=== PATIENT | female | born 1930 | race Caucasian/White ===

== ENCOUNTER 2017-02-23 18:45 | Inpatient (IN) | payer MEDICARE, BC ==
[2017-02-23] MEDS ORDERED: SODIUM CHLORIDE 0.9% 500 ML IV STA (19:43)
--- NOTE | 2017-02-23 20:07 | ED ---
General Adult HPI <Wayne Carrington - Last Filed: 02/23/17 22:22> - General Source: family, RN notes reviewed Mode of arrival: wheelchair Limitations: physical limitation <Danae Alanis - Last Filed: 02/23/17 23:02> - General Chief complaint: Extremity Injury, Upper Stated complaint: hip pain Time Seen by Provider: 02/23/17 19:35 - History of Present Illness Initial comments: 87-year-old female presents emergency Department chief complaint of fall. The patient was found at home on the ground. Patient was last talked to around noon and the family found her around 5. Patient does not know how she fell. Patient noticed the bruising to the left side of her face. He noticed that she is favoring her right shoulder as well as she is unable to bear weight onto her right leg. The patient at this time denies any pain except for when she tries to move her right shoulder or her right hip. She denies any headache. They states she does suffer from dementia. They state that she is confused today her confusion. He states they do not know if this is from the injury or new. The patient is a poor historian and does not even know how she fell when she fell. Patient denies any chest pain or shortness of breath. (Danae Alanis) - Related Data Home Medications Medication Instructions Recorded Confirmed Aspirin 81 mg PO DAILY 01/08/14 02/23/17 Valsartan/Hydrochlorothiazide 160 mg PO HS 01/08/14 02/23/17 [Diovan Hct 160-12.5 mg Tab] ALPRAZolam [Xanax] 0.25 mg PO BID PRN 01/30/14 02/23/17 Acetaminophen Tab [Tylenol] 500 mg PO BID 01/30/14 02/23/17 Furosemide [Lasix] 40 mg PO BID 08/18/14 02/23/17 traMADol HCl [Ultram] 50 mg PO Q4H PRN 11/11/14 02/23/17 Sertraline [Zoloft] 50 mg PO DAILY 01/05/15 02/23/17 Memantine [Namenda] 10 mg PO DAILY 02/23/17 02/23/17 Metoprolol Tartrate [Lopressor] 12.5 mg PO BID 02/23/17 02/23/17 Multivitamins, Thera [Multivitamin 1 tab PO DAILY 02/23/17 02/23/17 (formulary)] Allergies Allergy/AdvReac Type Severity Reaction Status Date / Time celecoxib [From Celebrex] AdvReac Unknown Verified 02/23/17 19:54 methylprednisolone acetate AdvReac Unknown Verified 02/23/17 19:54 [From Depo-Medrol] Review of Systems ROS Other: All systems not noted in ROS Statement are negative. <Wayne Carrington - Last Filed: 02/23/17 22:22> ROS Other: All systems not noted in ROS Statement are negative. <Danae Alanis - Last Filed: 02/23/17 23:02> ROS Statement: Those systems with pertinent positive or pertinent negative responses have been documented in the HPI. Past Medical History Past Medical History: Dementia, Diabetes Mellitus, Hyperlipidemia, Hypertension Additional Past Medical History / Comment(s): PHLEBITIS/BLOOD CLOTS/POOR CIRCULATION/LEAKAGE OF URINE/URIN FREQ/NARROWING OF ESOPHAGUS/OSTEOPOROSIS hx. bradycardia History of Any Multi-Drug Resistant Organisms: None Reported Past Surgical History: Back Surgery, Cholecystectomy, Hysterectomy Additional Past Surgical History / Comment(s): CATARACTS REMOVED R & L EYES/EGD/ R&L KNEE REPLACEMENT/KYPHOPLASTY Past Anesthesia/Blood Transfusion Reactions: No Reported Reaction Past Psychological History: No Psychological Hx Reported Smoking Status: Never smoker Past Alcohol Use History: None Reported Past Drug Use History: None Reported <Danae Alanis - Last Filed: 02/23/17 23:02> General Exam Limitations: physical limitation General appearance: alert, in no apparent distress Head exam: Present: atraumatic, normocephalic, normal inspection, other ( Minimal ecchymosis noted to the left upper forehead) Eye exam: Present: normal appearance, PERRL, EOMI. Absent: scleral icterus, conjunctival injection, periorbital swelling ENT exam: Present: normal exam, mucous membranes moist Neck exam: Present: normal inspection. Absent: tenderness, meningismus, lymphadenopathy Respiratory exam: Present: normal lung sounds bilaterally. Absent: respiratory distress, wheezes, rales, rhonchi, stridor Cardiovascular Exam: Present: regular rate, normal rhythm, normal heart sounds. Absent: systolic murmur, diastolic murmur, rubs, gallop, clicks GI/Abdominal exam: Present: soft, normal bowel sounds. Absent: distended, tenderness, guarding, rebound, rigid Right Shoulder Exam: Present: normal inspection, full ROM, tenderness (On The right shoulder). Absent: swelling, abrasion Upper Arm exam: Present: normal inspection, full ROM. Absent: tenderness, swelling Elbow exam: Present: normal inspection, full ROM. Absent: tenderness, swelling Forearm Wrist exam: Present: normal inspection, full ROM. Absent: tenderness, swelling Hand Wrist exam: Present: normal inspection, full ROM. Absent: tenderness, swelling Vascular: Present: normal capillary refill. Absent: vascular compromise Right Hip exam: Present: normal inspection, tenderness (Tenderness over the lateral aspect). Absent: full ROM (Tenderness on range of motion), swelling, abrasion Upper Leg exam: Present: normal inspection, full ROM. Absent: tenderness, swelling Knee exam: Present: normal inspection, full ROM. Absent: tenderness, swelling Lower Leg exam: Present: normal inspection, full ROM. Absent: tenderness, swelling Ankle exam: Present: normal inspection, full ROM. Absent: tenderness, swelling Back exam: Present: normal inspection, full ROM, tenderness (through the mid lumbar spine) Neurological exam: Present: alert, oriented X3 Psychiatric exam: Present: normal affect, normal mood Skin exam: Present: warm, dry, intact, normal color. Absent: rash <Danae Alanis - Last Filed: 02/23/17 23:02> Medical Decision Making - Lab Data Result diagrams: 02/23/17 20:50 02/23/17 20:50 <Wayne Carrington - Last Filed: 02/23/17 22:22> - Lab Data Result diagrams: 02/23/17 20:50 02/23/17 20:50 - Radiology Data Radiology results: report reviewed, image reviewed <Danae Alanis - Last Filed: 02/23/17 23:02> - Medical Decision Making Medical decision-making. The patient's x-ray shows evidence of a high root fracture of the right superior and inferior ramus. The case discussed with on- call orthopedic surgeon Dr. Saba. He will consult on the case. He recommends a CAT scan of the pelvis to include both hips.. The patient was found lying on the floor by family. She'll be admitted to her family doctor for evaluation. Dr. Carrington Discussed case with Dr. Nguyễn. Patient be admitted his service. Request for social service consultation for posthospitalization placement. Dr. Carrington (Wayne Carrington) 87-year-old female presents to the emergency department with a chief complaint of fall. Patient is complaining of right shoulder and right hip pain. There is concern for head trauma. At this time patient's imaging is reviewed that does show a pelvic fracture. Dr. Saba was discussed with the case and he would like a CT pelvis that he will follow-up with Admission. CT Head and Cervical Spine There Is Concern for a Chronic Fracture the Patient Does Have Chronic History of Neck Pain. She Will Be Placed in a C-Collar Will Have Orthopedics Follow up with This As Well. At This Time the Patient Also Does Have Some Dehydration We Will Hydrate the Patient. There Is Some Hyperglycemia We Will Continue the Patient on D Humalog Sliding Scale. This Time Patient and Family Claim of Questions Have Been Answered. They Will Be Admitted. (Danae Alanis) - Lab Data Lab Results 02/23/17 02/23/17 02/23/17 Range/Units 20:50 20:50 20:50 WBC 10.7 H (3.8-10.6) k/uL RBC 3.22 L (3.80-5.40) m/uL Hgb 10.5 L (11.4-16.0) gm/dL Hct 31.8 L (34.0-46.0) % MCV 98.8 (80.0-100.0) fL MCH 32.8 (25.0-35.0) pg MCHC 33.2 (31.0-37.0) g/dL RDW 13.5 (11.5-15.5) % Plt Count 236 (150-450) k/uL Neutrophils % 87 % Lymphocytes % 5 % Monocytes % 5 % Eosinophils % 0 % Basophils % 0 % Neutrophils # 9.2 H (1.3-7.7) k/uL Lymphocytes # 0.6 L (1.0-4.8) k/uL Monocytes # 0.5 (0-1.0) k/uL Eosinophils # 0.0 (0-0.7) k/uL Basophils # 0.0 (0-0.2) k/uL PT 10.0 (9.0-12.0) sec INR 1.0 (<1.1) APTT 21.1 L (22.0-30.0) sec Sodium 139 (137-145) mmol/L Potassium 4.4 (3.5-5.1) mmol/L Chloride 103 (98-107) mmol/L Carbon Dioxide 24 (22-30) mmol/L Anion Gap 12 mmol/L BUN 25 H (7-17) mg/dL Creatinine 1.70 H (0.52-1.04) mg/dL Est GFR (MDRD) Af Amer 34 (>60 ml/min/1.73 sqM) Est GFR (MDRD) Non-Af 28 (>60 ml/min/1.73 sqM) Glucose 435 H (74-99) mg/dL Calcium 9.8 (8.4-10.2) mg/dL Total Bilirubin 0.5 (0.2-1.3) mg/dL AST 29 (14-36) U/L ALT 32 (9-52) U/L Alkaline Phosphatase 105 (38-126) U/L Creatine Kinase 122 (30-135) U/L Total Protein 6.1 L (6.3-8.2) g/dL Albumin 3.5 (3.5-5.0) g/dL Disposition <Wayne Carrington - Last Filed: 02/23/17 22:22> Time of Disposition: 23:02 Decision Date: 02/23/17 Decision Time: 23:02 <Danae Alanis - Last Filed: 02/23/17 23:02> Clinical Impression: Dehydration, Pelvic fracture, Fall, Dementia, Hyperglycemia due to type 2 diabetes mellitus, Chronic neck pain, Contusion of left ankle, Right shoulder strain Disposition: ADMITTED IP TO THIS [facility] Condition: Stable Referrals: Peter Nguyễn DO [Primary Care Provider] - 1-2 days
[2017-02-23] MEDS: MORPHINE SULFATE 2 MG/ML SYRINGE IVP STA ×2 (20:53→23:01)
[2017-02-23 21:05] LABS: Basophils % (A) 0 %; CH 30.8; CHCM 31.4; Eosinophils % (A) 0 %; HCT 31.8 % (34.0-46.0); HDW 2.35; HGB 10.5 gm/dL (11.4-16.0); Luc # (Auto) 0.32; Luc % (Auto) 3; Lymphocytes # (A) 0.6 k/uL (1.0-4.8); Lymphocytes % (A) 5 %; MCH 32.8 pg (25.0-35.0); MCHC 33.2 g/dL (31.0-37.0); MCV 98.8 fL (80.0-100.0); Mean Platelet Volume 7.9; Monocytes # (A) 0.5 k/uL (0-1.0); Monocytes % (A) 5 %; Neutrophils # (A) 9.2 k/uL (1.3-7.7); Neutrophils % (A) 87 %; RBC 3.22 m/uL (3.80-5.40); RDW 13.5 % (11.5-15.5); WBC 10.7 k/uL (3.8-10.6)
[2017-02-23 21:23] LABS: Calcium 9.8 mg/dL (8.4-10.2); Potassium 4.4 mmol/L (3.5-5.1); Total Bilirubin 0.5 mg/dL (0.2-1.3); Total Protein 6.1 g/dL (6.3-8.2)
[2017-02-23 21:40] LABS: Partial Thromboplastin Time 21.1 sec (22.0-30.0)
--- NOTE | 2017-02-23 21:46 | XR ---
EXAMINATION TYPE: XR ankle complete LT DATE OF EXAM: 02/23/2017 COMPARISON: NONE HISTORY: Pain TECHNIQUE: 3 views FINDINGS: There is soft tissue swelling over the lateral malleolus. Bones are osteopenic. There is a plantar and Achilles calcaneal spur. I see no fracture. IMPRESSION: Soft tissue swelling. No fracture. There is significant narrowing at the subtalar joint.
--- NOTE | 2017-02-23 21:47 | XR ---
EXAMINATION TYPE: XR shoulder complete RT DATE OF EXAM: 02/23/2017 COMPARISON: NONE HISTORY: Pain TECHNIQUE: 5 views FINDINGS: There is severe narrowing of the subacromial joint space. I see no fracture. There is spurr ing at the AC joint. IMPRESSION: No fracture. Severe subacromial joint space narrowing consistent with chronic rotator cuf f tear. There is obliteration of subacromial joint space.
--- NOTE | 2017-02-23 21:50 | XR ---
EXAMINATION TYPE: XR Hip RT and AP Pelvis DATE OF EXAM: 02/23/2017 COMPARISON: None HISTORY: Pain TECHNIQUE: A single AP view of the pelvis is obtained. Two views of the right hip are obtained. FINDINGS: The proximal right femur is intact. There is some deformity of the right superior and infer ior pubic rami with displaced fracture to almost 1 cm. There is a left hip nailing. The sacroiliac dulce ints appear intact. IMPRESSION: Acute mildly displaced fractures of the right superior and inferior pubic rami. Displacem ent is up to 1 cm. No dislocation.
--- NOTE | 2017-02-23 21:52 | XR ---
EXAMINATION TYPE: XR lumbar spine 2 or 3V DATE OF EXAM: 02/23/2017 COMPARISON: NONE HISTORY: Pain TECHNIQUE: 3 views FINDINGS: There is slight levoscoliosis. There is degenerative disc space narrowing from L2 to S1 wit h spurring of the endplates. I see no compression fracture. There is vertebroplasty of T11 with almos t 50% compression deformity. Abdominal aorta is atheromatous. Sacroiliac joints are intact. IMPRESSION: Old T11 compression fracture. Spondylotic changes. No acute fracture seen.
--- NOTE | 2017-02-23 21:53 | XR ---
EXAMINATION TYPE: XR chest 1V DATE OF EXAM: 02/23/2017 COMPARISON: 08/15/2012 HISTORY: Pain TECHNIQUE: Single frontal view of the chest is obtained. FINDINGS: There is no heart failure nor confluent pneumonic infiltrate. There is thoracic vertebropl asty noted. There is no pleural effusion. Thoracic aorta is atheromatous. IMPRESSION: No active cardiopulmonary disease. No definite change compared to old exam.
--- NOTE | 2017-02-23 22:35 | CT ---
Exam: CT HEAD Without Contrast INDICATION: Pain TECHNIQUE: Multiple, contiguous 3 mm axial cuts of the brain are obtained from the posterior fossa to the cranial vault. Sagittal and coronal reformatted images provided. No IV contrast is administered. This CT exam was performed using one or more of the following dose reduction techniques: automated exposure control, adjustment of the mA and/or kV according to patient size, and/or use of iterative reconstruction technique. CTDI 57.40, DLP 955.20 COMPARISON: MRI brain 12/12/13 FINDINGS: No intracranial hemorrhage, abnormal intra- or extra-axial collections or parenchymal lesions are seen. There are involutional changes with prominence of the sulci, basal cisterns and ventricles. Scattered white matter hypoattenuations are present, likely from small vessel disease. The corado-white differentiation is preserved. No evidence of mass effect, midline shift, or edema. No skull fracture. The visualized portions of the paranasal sinuses and mastoid air cells are clear aside from opacification of one of the right mastoid air cells as on prior MRI exam.. IMPRESSION: 1. No acute intracranial hemorrhage or acute intracranial process. No skull fracture.. 2. Involutional changes with small vessel disease. Exam: CT C SPINE INDICATION: TECHNIQUE: Multiple, contiguous 2.5 mm axial cuts of the cervical spine are obtained from the skull base to the thoracic inlet. Sagittal and coronal reformatted images provided. No IV contrast is administered. This CT exam was performed using one or more of the following dose reduction techniques: automated exposure control, adjustment of the mA and/or kV according to patient size, and/or use of iterative reconstruction technique. CTD15.60 , DLP 255.10 COMPARISON: No prior cervical spine exam available FINDINGS: There is a type II dens fracture with dorsal angulation at the fracture site with fracture line anteriorly measuring up to 5 mm clinical dimension and minimal distance at the posterior fracture line. There is some suggestion of cortication at the margins of this fracture raising possibility this can be chronic fracture. There is moderate compression deformity of T3 vertebral body age- indeterminate. No significant retropulsion. Mild chronic appearing loss of vertebral body height at C5 level. Remaining cervical spine vertebral body heights are maintained. There is approximate 2 mm anterolisthesis of C3 relative to C4 and C6 relative to C7. This appears to be on a degenerative basis. Severe degenerative disc space narrowing C4/C5, C5/C6 and C6/C7 level with anterior endplate degenerative osteophyte formation and mild disc osteophyte complexes posteriorly. Mild degenerative disc space narrowing at C3/C4. There is mild facet arthropathy from C2/C3 C5/C6 and mild to moderate degree at C6/C7 level on the left. Mild degree of foraminal narrowing on the left at C5/C6 bilaterally at C4/C5. Mild central canal narrowing at C4/C5, C5/C6 and C6/C7 level. Prevertebral soft tissues are unremarkable. There is osteopenia. Lung apices are clear. IMPRESSION: 1. Type II dens fracture with dorsal angulation as described. No significant subluxation. Some cortication at the fracture line suggests this may be chronic fracture. Correlate with patient's clinical history. 2. Moderate compression deformity T3 vertebral body age-indeterminate no retropulsion. Mild chronic compression of C5 vertebral body. 3. 2 mm degenerative anterolisthesis C3 relative to C4 and C6 relative to C7. Remaining longitudinal alignment is maintained. 4. Prevertebral soft tissues are unremarkable. 5. Multilevel degenerative changes of the cervical spine along with osteopenia as described. Discussed with Dr. Carrington on 02/23 22:30 (-04:00) [employer] 02/23/17 22:31 Call Doctor Regarding Other, called Dr. Carrington on 02/23 22: 30 (-04:00)
[2017-02-23] MEDS ORDERED: ACETAMINOPHEN TAB 325 MG TAB PO PRN (23:02)
[2017-02-23] MEDS ORDERED: NALOXONE 0.4 MG/ML 1 ML VIAL IV PRN (23:02)
[2017-02-23] MEDS ORDERED: ONDANSETRON 4 MG/2 ML VIAL IVP PRN (23:02)
[2017-02-23 23:03] VITALS: RESP 16
[2017-02-23] MEDS ORDERED: traMADol 50 MG TAB PO PRN (23:04)
[2017-02-23] MEDS ORDERED: ALPRAZolam 0.25 MG TAB PO PRN (23:04)
--- NOTE | 2017-02-23 23:19 | CT ---
Exam: CT PELVIS Without Contrast HISTORY: Pain TECHNIQUE: CT of the pelvis was performed with 3 mm transaxial images with images obtained from L3 to proximal thigh. No contrast administered. This CT exam was performed using one or more of the following dose reduction techniques: automated exposure control, adjustment of the mA and/or kV according to patient size, and/or use of iterative reconstruction technique.CTDI 7.4 , DLP 223.8 COMPARISON: Right hip and pelvis radiograph 02/21/17 FINDINGS: Acute fracture of the right iliac bone with approximate 4 mm lateral displacement of the lateral cortex. This is at the level of the sacroiliac joint. Mild widening of the right sacroiliac joint compared to the left. Comminuted fracture right inferior pubic ramus displaced by one shaft width with a component of overriding of approximately 5 mm. Fracture of the right superior pubic ramus near the acetabular junction mildly displaced by 5 mm. No other acute fracture. No hip malalignment. Mild stranding hemorrhagic fluid in the right lateral pelvic wall and an approximate 4 x 2.5 cm right obturator externus externus hematoma and approximate 2 x 2.5 cm right obturator internus hematoma. Small amount of hemorrhagic fluid in the space of Retzius. Pubic symphysis is intact. There is an old healed left femur intertrochanteric fracture with intramedullary jay and screw fixation hardware with partially visualized portions of the hardware intact. There is L3/L4-L5/S1 severe degenerative disc space narrowing. There is associated mild endplate degenerative osteophyte formation and facet arthropathy. There is osteopenia. There is mild to moderate degenerative hip joint space narrowing bilaterally. Diverticulosis sigmoid without diverticulitis. No free intraperitoneal fluid within the pelvis. There is vascular calcification. IMPRESSION: Acute fracture of the right iliac bone with approximate 4 mm lateral displacement of the lateral cortex. This is at the level of the sacroiliac joint. Mild widening of the right sacroiliac joint compared to the left. Comminuted fracture right inferior pubic ramus displaced by one shaft width with a component of overriding of approximately 5 mm. Fracture of the right superior pubic ramus near the acetabular junction mildly displaced by 5 mm. No other acute fracture. No hip malalignment. Mild stranding hemorrhagic fluid in the right lateral pelvic wall and an approximate 4 x 2.5 cm right obturator externus externus hematoma and approximate 2 x 2.5 cm right obturator internus hematoma. Small amount of hemorrhagic fluid in the space of Retzius.
[2017-02-24 01:24] VITALS: BMI 24.8
[2017-02-24] MEDS: SODIUM CHLORIDE 0.9% 1,000 ML IV SCH ×2 (02:08→14:15)
[2017-02-24 07:23] LABS: Glucose,Whole Blood 224 mg/dL (75-99)
[2017-02-24 07:47] LABS: Basophils % (A) 1 %; CH 30.5; CHCM 30.6; Eosinophils % (A) 1 %; HCT 26.3 % (34.0-46.0); HDW 2.19; Hypochromasia Slight; Luc # (Auto) 0.22; Luc % (Auto) 4; Lymphocytes # (A) 1.6 k/uL (1.0-4.8); Lymphocytes % (A) 27 %; MCH 30.6 pg (25.0-35.0); MCHC 30.5 g/dL (31.0-37.0); MCV 100.5 fL (80.0-100.0); Macrocytosis Slight; Mean Platelet Volume 7.8; Monocytes # (A) 0.4 k/uL (0-1.0); Monocytes % (A) 7 %; Neutrophils # (A) 3.6 k/uL (1.3-7.7); Neutrophils % (A) 62 %; RBC 2.62 m/uL (3.80-5.40); RDW 13.5 % (11.5-15.5); WBC 5.9 k/uL (3.8-10.6); WBC (Perox) 6.08
[2017-02-24] MEDS: MORPHINE SULFATE 4 MG/ML SYRINGE IV PRN ×3 (08:25→17:41)
[2017-02-24] MEDS: INSULIN LISPRO (humaLOG) 300 UNIT/3 ML VIAL SQ SCH ×3 (08:32→17:38)
[2017-02-24 08:41] LABS: Calcium 8.9 mg/dL (8.4-10.2); Potassium 3.9 mmol/L (3.5-5.1); Total Bilirubin 0.6 mg/dL (0.2-1.3)
[2017-02-24] MEDS ORDERED: ASPIRIN 81 MG CHEW PO SCH (09:00)
[2017-02-24] MEDS ORDERED: MULTIVITAMINS, THERA 1 EACH TAB PO SCH (09:00)
[2017-02-24] MEDS ORDERED: SERTRALINE 50 MG TAB PO SCH (09:00)
[2017-02-24] MEDS ORDERED: METOPROLOL TARTRATE 12.5 MG TAB PO SCH (09:00)
[2017-02-24] MEDS ORDERED: FUROSEMIDE 40 MG TAB PO SCH (09:00)
[2017-02-24] MEDS ORDERED: MEMANTINE 10 MG TAB PO SCH (09:00)
[2017-02-24 11:56] LABS: Glucose,Whole Blood 173 mg/dL (75-99)
--- NOTE | 2017-02-24 13:17 | DS ---
DATE OF ADMISSION: 02/23/2017 DATE OF DISCHARGE: HISTORY AND PHYSICAL/DISCHARGE TRANSFER SUMMARY Date seen is 02/24/2017. Allergies to CELEBREX and DEPO-MEDROL. CURRENT MEDICATIONS: 1. Tylenol. 2. Xanax. 3. Aspirin. 4. Lasix. 5. Hydrochlorothiazide 12.5 q.h.s. 6. Humalog. 7. Namenda 10 daily. 8. Lopressor 12.5 b.i.d. 9. Morphine 2 mg IV q.4. 10. Multivitamin. 11. Zofran 4 mg IV q.8. 12. Zoloft 50 once daily. 13. Tramadol 50 q.4 p.r.n. 14. Diovan 160 q.h.s. 15. She is also on normal saline. The patient is a pleasant 87-year-old female. CHIEF COMPLAINT: Patient somewhere on 02/23/2017 suffered a fall in her home. Her daughter had found her after the fall on the ground. Apparently, the fall was approximately noon and daughter found her approximately 5 p.m. She had multiple bruises on the left side of her face, on her knees, ankle and hands, but mostly she was unable to bear weight on her right side. She was brought to the emergency room and found to have a fractured pelvis. REVIEW OF SYSTEMS: Alzheimer's dementia, not a very good historian. Most of the discussion was with her daughter at bedside. She is still living alone and has been very functional up to this point. PAST MEDICAL HISTORY: Significant for dementia, diabetes, hyperlipidemia, hypertension, degenerative arthritis, kyphoscoliosis, overactive bladder and urinary incontinence, osteoporosis. PAST SURGICAL HISTORY: Lumbar fusion, cholecystectomy, hysterectomy, bilateral cataracts, bilateral knee replacement and a kyphoplasty. PHYSICAL EXAM: The patient is alert and awake. She is in mild distress secondary to a C-collar and pain in the pelvic area. Head is normocephalic with minimal ecchymosis on the left upper forehead. EYES: Pupils equal, round and reactive to light. NECK: Unable to examine, she is in a large immobilizing C-collar. LUNGS: Clear to auscultation with diminished breath sounds. SHOULDER: Tenderness on the right shoulder with some ecchymosis noted, but good range of motion. Bilateral arm bruising and hands with gross deformities secondary to osteoarthritis. Pelvis and hip are tender throughout with nonweightbearing and no motion at this point secondary to pain. NEUROLOGICAL: Cranial nerves 2 through 12 grossly intact without any lateralizing deficit. PSYCHIATRY; She appears calm. Skin is warm and dry to palpation. IMPRESSIONS: 1. Acute dehydration. 2. Pelvic fracture secondary to fall. 3. Multiple contusions secondary to fall. 4. Dens type II fracture of the cervical spine, could not rule out subacute fracture with a previous x-ray last year showing no fracture. 5. Type 2 diabetes. 6. Contusion to left ankle and right shoulder strain. 7. Chronic kidney disease. 8. Chronic anemia. PLAN AND TRANSFER: The patient was seen and asked for an orthopedic consultation. We could not determine the stability of the dens cervical spine fracture whether it is acute or chronic. It was felt that patient's multiple comorbidities and pelvic fracture and possible cervical spine fracture that she should be transferred to tertiary care center or some place with trauma or spine surgery. I have discussed this with her daughter who is in agreement. We will go ahead and have case management start transfer process. Continue to follow patient's progress until cleared by ortho or transferred to a trauma facility.
[2017-02-24 14:08] VITALS: BP 153/69; PULSE 98; TEMP 98.2
[2017-02-24 16:37] LABS: Glucose,Whole Blood 167 mg/dL (75-99)
[2017-02-24 19:05] LABS: Hemoglobin A1C 8.3 % (4.2-6.1)
[2017-02-24] MEDS ORDERED: HYDROCHLOROTHIAZIDE 12.5 MG CAP PO SCH (21:00)
[2017-02-24] MEDS ORDERED: VALSARTAN 160 MG TAB PO SCH (21:00)
--- NOTE | 2017-02-28 09:23 | CDI ---
In responding to this query, please exercise your independent professional judgment. The [employer] Coding Staff and Clinical Documentation Specialists appreciate your assistance in clarifying documentation, maintaining compliance with coding guidelines, accurately documenting patients condition and capturing severity of illness. The fact that a question is asked does not imply that any particular answer is desired or expected. Communication forms are a method of clarifying documentation and are not made part of the Legal Health Record. Thank you in advance for your clarification. Last Revision, July 2015 [facility] Anderson [address] [place] [address] Documentation Clarification Form Date: 02/28/2017 9:11:00 AM From: Regina Graves Admit Date: 02/23/2017 11:50:00 PM Patient Name: Amee Damon Visit Number: [id number] Discharge Date: 02/24/17 Dr. Peter Nguyễn Patient presents with a BUN/CR/GFR of: BUN-25, CR-1.70, GFR-28 History/Risk Factors: Diabetic, chronic kidney disease stage not specified Patients baseline BUN/CR/GFR: not stated Treatment: Consults: transferred prior to any consults IVF In order to capture the severity of condition, please clarify if the condition signifies: Acute renal failure/Acute kidney injury (Please specify (if known): Cortical , Medullary, or Tubular Necrosis?) Acute on chronic renal failure (Please stage) Chronic renal failure/Chronic kidney disease (Please stage) Stage 1 GFR >90 Stage 2 GFR 60-89 Stage 3 GFR 30-59 Stage 4 GFR 15-29 Stage 5 GFR <15 ESRD Unable to determine Other, specify Please document in your discharge summary in order to capture severity of illness and risk of mortality. Include clinical findings that support your diagnosis. FYI: Press F11 to launch patient chart. Place X here if this finding has no clinical significance, is not applicable or if you are not able to provide any additional documentation. JENNYFER Enriquez, CCS, [facility] Certified I-[employer] Public Service Representative/Steam Pressure Chamber Operator/Public Service Representative II If you have any questions or concerns please contact Nicol Kaminski, Court Bailiff, Liu Anderson @ [phone] [facility]
== END 2017-02-24 17:59 | disposition short-term general hospital (02) | DRG 536 ==
LOC: EC 18:45 → 3SUR 23:50
PROVIDERS: ADMIT Family Medicine; ATTEND Family Medicine
DX: S32.511A Fracture of superior rim of right pubis, initial encounter for closed fracture (principal); S12.111A Posterior displaced Type II dens fracture, initial encounter for closed fracture; E11.22 Type 2 diabetes mellitus with diabetic chronic kidney disease; E11.65 Type 2 diabetes mellitus with hyperglycemia; G30.9 Alzheimer's disease, unspecified; F02.80 Dementia in other diseases classified elsewhere, unspecified severity, without behavioral disturbance, psychotic disturbance, mood disturbance, and anxiety; S46.911A Strain of unspecified muscle, fascia and tendon at shoulder and upper arm level, right arm, initial encounter; D64.9 Anemia, unspecified; I12.9 Hypertensive chronic kidney disease with stage 1 through stage 4 chronic kidney disease, or unspecified chronic kidney disease; E86.0 Dehydration; M41.9 Scoliosis, unspecified; S32.391A Other fracture of right ilium, initial encounter for closed fracture; S90.02XA Contusion of left ankle, initial encounter; N18.9 Chronic kidney disease, unspecified; E78.5 Hyperlipidemia, unspecified; N32.81 Overactive bladder; R32 Unspecified urinary incontinence; M81.0 Age-related osteoporosis without current pathological fracture; M19.91 Primary osteoarthritis, unspecified site; Z88.8 Allergy status to other drugs, medicaments and biological substances; Z91.81 History of falling; Z90.49 Acquired absence of other specified parts of digestive tract; Z98.1 Arthrodesis status; Z96.653 Presence of artificial knee joint, bilateral; Z98.42 Cataract extraction status, left eye; Z98.41 Cataract extraction status, right eye; Z86.72 Personal history of thrombophlebitis; Z90.710 Acquired absence of both cervix and uterus; Z79.82 Long term (current) use of aspirin; Z79.4 Long term (current) use of insulin; Z79.899 Other long term (current) drug therapy; W18.30XA Fall on same level, unspecified, initial encounter; Y92.009 Unspecified place in unspecified non-institutional (private) residence as the place of occurrence of the external cause
CPT/HCPCS: 36415; 70450; 71010; 72100; 72125; 72192; 73502; 80053; 82550; 83036; 85025; 85610; 85730; 96374; 99285

== ENCOUNTER 2017-09-09 15:50 | Emergency (ER) | payer MEDICARE, BC ==
[2017-09-09 16:03] LABS: Glucose,Whole Blood 39 mg/dL (75-99)
[2017-09-09] MEDS ORDERED: DEXTROSE 50%-WATER 50 ML SYRINGE IVP STA (16:41)
--- NOTE | 2017-09-09 16:52 | ED ---
General Adult HPI - General Chief complaint: Neuro Symptoms/Deficit Stated complaint: Poss TIA, low sugar Time Seen by Provider: 09/09/17 15:50 Source: EMS, RN notes reviewed Mode of arrival: EMS Limitations: altered mental status - History of Present Illness Initial comments: This is an 87-year-old female who presents emergency Department with a past history significant for strokes and diabetes. Daughter states today she was sitting on the couch and then started just staring at the tree and all of a sudden became more more unresponsive over the next couple of hours. Daughter after 2 hours check the patient's sugar and it was 50. When EMS arrived they did a sugar and found that it was 65. On arrival here the patient's sugar was 39. Patient currently is having a little slurred speech but daughter says otherwise is at her baseline. Patient has no complaints of a headache denies any numbness weakness denies any chest pain palpitations difficulty breathing or shortness of breath. Patient denies any abdominal pain. Patient denies any recent illness patient denies any vomiting or diarrhea. - Related Data Home Medications Medication Instructions Recorded Confirmed Aspirin 81 mg PO DAILY 01/08/14 09/09/17 Acetaminophen Tab [Tylenol] 500 mg PO BID 01/30/14 09/09/17 Furosemide [Lasix] 40 mg PO BID 08/18/14 09/09/17 traMADol HCl [Ultram] 50 mg PO Q8H PRN 11/11/14 09/09/17 Memantine [Namenda] 10 mg PO BID 02/23/17 09/09/17 Metoprolol Tartrate [Lopressor] 12.5 mg PO DAILY 02/23/17 09/09/17 Multivitamins, Thera [Multivitamin 1 tab PO DAILY 02/23/17 09/09/17 (formulary)] ALPRAZolam [Xanax] 0.5 mg PO TID PRN 09/09/17 09/09/17 Valsartan [Diovan] 160 mg PO DAILY 09/09/17 09/09/17 glipiZIDE [Glucotrol] 10 mg PO AC-BID 09/09/17 09/09/17 Previous Rx's Medication Instructions Recorded Sulfamethox-Tmp 800-160Mg [Bactrim 1 each PO Q12HR #14 tab 09/09/17 DS 800-160 mg] Allergies Allergy/AdvReac Type Severity Reaction Status Date / Time celecoxib [From Celebrex] AdvReac Unknown Verified 09/09/17 16:07 methylprednisolone acetate AdvReac Unknown Verified 09/09/17 16:07 [From Depo-Medrol] Review of Systems ROS Statement: Those systems with pertinent positive or pertinent negative responses have been documented in the HPI. ROS Other: All systems not noted in ROS Statement are negative. Past Medical History Past Medical History: Dementia, Diabetes Mellitus, Hyperlipidemia, Hypertension Additional Past Medical History / Comment(s): PHLEBITIS/BLOOD CLOTS/POOR CIRCULATION/LEAKAGE OF URINE/URIN FREQ/NARROWING OF ESOPHAGUS/OSTEOPOROSIS hx. bradycardia History of Any Multi-Drug Resistant Organisms: None Reported Past Surgical History: Back Surgery, Cholecystectomy, Hysterectomy Additional Past Surgical History / Comment(s): CATARACTS REMOVED R & L EYES/EGD/ R&L KNEE REPLACEMENT/KYPHOPLASTY Past Anesthesia/Blood Transfusion Reactions: No Reported Reaction Past Psychological History: No Psychological Hx Reported Smoking Status: Never smoker Past Alcohol Use History: None Reported Past Drug Use History: None Reported General Exam - General Exam Comments Initial Comments: GENERAL: Patient is well-developed and well-nourished. Patient is nontoxic and well- hydrated and is in no acute distress. ENT: Neck is soft and supple. No significant lymphadenopathy is noted. Oropharynx is clear. Moist mucous membranes. Neck has full range of motion without eliciting any pain. EYES: The sclera were anicteric and conjunctiva were pink and moist. Extraocular movements were intact and pupils were equal round and reactive to light. Eyelids were unremarkable. PULMONARY: Unlabored respirations. Good breath sounds bilaterally. No audible rales rhonchi or wheezing was noted. CARDIOVASCULAR: There is a regular rate and rhythm without any murmurs gallops or rubs. ABDOMEN: Soft and nontender with normal bowel sounds. No palpable organomegaly was noted. There is no palpable pulsatile mass. SKIN: Skin is clear with no lesions or rashes and otherwise unremarkable. NEUROLOGIC: Patient is alert and oriented x3. Cranial nerves II through XII are grossly intact. Motor and sensory are also intact. Slightly slurred speech. Symmetrical smile. MUSCULOSKELETAL: Normal extremities with adequate strength and full range of motion. No lower extremity swelling or edema. No calf tenderness. LYMPHATICS: No significant lymphadenopathy is noted PSYCHIATRIC: Normal psychiatric evaluation. Normal interpersonal interactions appears functionally intact in deals appropriately with others. No signs of depression. No signs of anxiety. Limitations: altered mental status Course Vital Signs 09/09/17 09/09/17 15:51 15:58 Temperature 97.9 F Pulse Rate 54 L Respiratory 16 Rate Blood Pressure 160/65 O2 Sat by Pulse 99 Oximetry Medical Decision Making - Medical Decision Making EKG shows sinus bradycardia at 49 bpm NJ interval is 180 QRSs 84 Q-T intervals 484 QTC is [address] segment elevation or depression no T-wave abnormalities are noted - Lab Data Result diagrams: 09/09/17 16:30 09/09/17 16:30 Lab Results 09/09/17 09/09/17 09/09/17 Range/Units 16:01 16:30 16:30 WBC 6.9 (3.8-10.6) k/uL RBC 3.94 (3.80-5.40) m/uL Hgb 12.0 (11.4-16.0) gm/dL Hct 39.0 (34.0-46.0) % MCV 99.1 (80.0-100.0) fL MCH 30.4 (25.0-35.0) pg MCHC 30.7 L (31.0-37.0) g/dL RDW 13.5 (11.5-15.5) % Plt Count 363 (150-450) k/uL Neutrophils % 71 % Lymphocytes % 22 % Monocytes % 4 % Eosinophils % 1 % Basophils % 1 % Neutrophils # 4.9 (1.3-7.7) k/uL Lymphocytes # 1.5 (1.0-4.8) k/uL Monocytes # 0.3 (0-1.0) k/uL Eosinophils # 0.1 (0-0.7) k/uL Basophils # 0.0 (0-0.2) k/uL Hypochromasia Slight PT (9.0-12.0) sec INR (<1.2) APTT (22.0-30.0) sec Sodium (137-145) mmol/L Potassium (3.5-5.1) mmol/L Chloride (98-107) mmol/L Carbon Dioxide (22-30) mmol/L Anion Gap mmol/L BUN (7-17) mg/dL Creatinine (0.52-1.04) mg/dL Est GFR (MDRD) Af Amer (>60 ml/min/1.73 sqM) Est GFR (MDRD) Non-Af (>60 ml/min/1.73 sqM) Glucose (74-99) mg/dL POC Glucose (mg/dL) 39 L (75-99) mg/dL POC Glu Homemaker Companion ID Lorena Noel Calcium (8.4-10.2) mg/dL Total Bilirubin (0.2-1.3) mg/dL AST (14-36) U/L ALT (9-52) U/L Alkaline Phosphatase (38-126) U/L Total Creatine Kinase <20 L (30-135) U/L CK-MB (CK-2) 0.5 (0.0-2.4) ng/mL CK-MB (CK-2) Rel Index Troponin I <0.012 (0.000-0.034) ng/mL Total Protein (6.3-8.2) g/dL Albumin (3.5-5.0) g/dL Urine Color Urine Appearance (Clear) Urine pH (5.0-8.0) Ur Specific [place] (1.001-1.035) Urine Protein (Negative) Urine Glucose (UA) (Negative) Urine Ketones (Negative) Urine Blood (Negative) Urine Nitrite (Negative) Urine Bilirubin (Negative) Urine Urobilinogen (<2.0) mg/dL Ur Leukocyte Esterase (Negative) Urine WBC (0-5) /hpf Ur Squamous Epith Cells (0-4) /hpf Hyaline Casts (0-2) /lpf Urine Mucus (None) /hpf 09/09/17 09/09/17 09/09/17 Range/Units 16:30 16:30 17:06 WBC (3.8-10.6) k/uL RBC (3.80-5.40) m/uL Hgb (11.4-16.0) gm/dL Hct (34.0-46.0) % MCV (80.0-100.0) fL MCH (25.0-35.0) pg MCHC (31.0-37.0) g/dL RDW (11.5-15.5) % Plt Count (150-450) k/uL Neutrophils % % Lymphocytes % % Monocytes % % Eosinophils % % Basophils % % Neutrophils # (1.3-7.7) k/uL Lymphocytes # (1.0-4.8) k/uL Monocytes # (0-1.0) k/uL Eosinophils # (0-0.7) k/uL Basophils # (0-0.2) k/uL Hypochromasia PT 9.3 (9.0-12.0) sec INR 0.9 (<1.2) APTT 21.8 L (22.0-30.0) sec Sodium 145 (137-145) mmol/L Potassium 4.6 (3.5-5.1) mmol/L Chloride 102 (98-107) mmol/L Carbon Dioxide 30 (22-30) mmol/L Anion Gap 13 mmol/L BUN 51 H (7-17) mg/dL Creatinine 1.60 H (0.52-1.04) mg/dL Est GFR (MDRD) Af Amer 37 (>60 ml/min/1.73 sqM) Est GFR (MDRD) Non-Af 30 (>60 ml/min/1.73 sqM) Glucose 38 L* (74-99) mg/dL POC Glucose (mg/dL) 140 H (75-99) mg/dL POC Glu Homemaker Companion ID [place], Li Calcium 10.5 H (8.4-10.2) mg/dL Total Bilirubin 0.4 (0.2-1.3) mg/dL AST 32 (14-36) U/L ALT 28 (9-52) U/L Alkaline Phosphatase 135 H (38-126) U/L Total Creatine Kinase (30-135) U/L CK-MB (CK-2) (0.0-2.4) ng/mL CK-MB (CK-2) Rel Index Troponin I (0.000-0.034) ng/mL Total Protein 7.9 (6.3-8.2) g/dL Albumin 4.1 (3.5-5.0) g/dL Urine Color Urine Appearance (Clear) Urine pH (5.0-8.0) Ur Specific [place] (1.001-1.035) Urine Protein (Negative) Urine Glucose (UA) (Negative) Urine Ketones (Negative) Urine Blood (Negative) Urine Nitrite (Negative) Urine Bilirubin (Negative) Urine Urobilinogen (<2.0) mg/dL Ur Leukocyte Esterase (Negative) Urine WBC (0-5) /hpf Ur Squamous Epith Cells (0-4) /hpf Hyaline Casts (0-2) /lpf Urine Mucus (None) /hpf 09/09/17 09/09/17 Range/Units 18:01 18:10 WBC (3.8-10.6) k/uL RBC (3.80-5.40) m/uL Hgb (11.4-16.0) gm/dL Hct (34.0-46.0) % MCV (80.0-100.0) fL MCH (25.0-35.0) pg MCHC (31.0-37.0) g/dL RDW (11.5-15.5) % Plt Count (150-450) k/uL Neutrophils % % Lymphocytes % % Monocytes % % Eosinophils % % Basophils % % Neutrophils # (1.3-7.7) k/uL Lymphocytes # (1.0-4.8) k/uL Monocytes # (0-1.0) k/uL Eosinophils # (0-0.7) k/uL Basophils # (0-0.2) k/uL Hypochromasia PT (9.0-12.0) sec INR (<1.2) APTT (22.0-30.0) sec Sodium (137-145) mmol/L Potassium (3.5-5.1) mmol/L Chloride (98-107) mmol/L Carbon Dioxide (22-30) mmol/L Anion Gap mmol/L BUN (7-17) mg/dL Creatinine (0.52-1.04) mg/dL Est GFR (MDRD) Af Amer (>60 ml/min/1.73 sqM) Est GFR (MDRD) Non-Af (>60 ml/min/1.73 sqM) Glucose (74-99) mg/dL POC Glucose (mg/dL) 164 H (75-99) mg/dL POC Glu Homemaker Companion ID Zeny Ornelas Calcium (8.4-10.2) mg/dL Total Bilirubin (0.2-1.3) mg/dL AST (14-36) U/L ALT (9-52) U/L Alkaline Phosphatase (38-126) U/L Total Creatine Kinase (30-135) U/L CK-MB (CK-2) (0.0-2.4) ng/mL CK-MB (CK-2) Rel Index Troponin I (0.000-0.034) ng/mL Total Protein (6.3-8.2) g/dL Albumin (3.5-5.0) g/dL Urine Color Yellow Urine Appearance Cloudy H (Clear) Urine pH 5.0 (5.0-8.0) Ur Specific [place] 1.011 (1.001-1.035) Urine Protein Negative (Negative) Urine Glucose (UA) Negative (Negative) Urine Ketones Negative (Negative) Urine Blood Negative (Negative) Urine Nitrite Negative (Negative) Urine Bilirubin Negative (Negative) Urine Urobilinogen <2.0 (<2.0) mg/dL Ur Leukocyte Esterase Large H (Negative) Urine WBC >182 H (0-5) /hpf Ur Squamous Epith Cells 11 H (0-4) /hpf Hyaline Casts 55 H (0-2) /lpf Urine Mucus Rare H (None) /hpf Disposition Clinical Impression: Urinary tract infection, Hypoglycemia Disposition: HOME SELF-CARE Instructions: Urinary Tract Infection in Women (ED), Hypoglycemia in a Person with Diabetes (ED) Prescriptions: Sulfamethox-Tmp 800-160Mg [Bactrim DS 800-160 mg] 1 each PO Q12HR #14 tab Referrals: Peter Nguyễn DO [Primary Care Provider] - 1-2 days Time of Disposition: 18:37
[2017-09-09 17:07] LABS: Basophils % (A) 1 %; Eosinophils # (A) 0.1 k/uL (0-0.7); Eosinophils % (A) 1 %; Hypochromasia Slight; Lymphocytes # (A) 1.5 k/uL (1.0-4.8); Lymphocytes % (A) 22 %; MCH 30.4 pg (25.0-35.0); MCHC 30.7 g/dL (31.0-37.0); MCV 99.1 fL (80.0-100.0); Mean Platelet Volume 8.9; Monocytes # (A) 0.3 k/uL (0-1.0); Monocytes % (A) 4 %; Neutrophils # (A) 4.9 k/uL (1.3-7.7); Neutrophils % (A) 71 %; Platelet Count 363 k/uL (150-450); RBC 3.94 m/uL (3.80-5.40); RDW 13.5 % (11.5-15.5); WBC 6.9 k/uL (3.8-10.6)
[2017-09-09 17:09] LABS: Glucose,Whole Blood 140 mg/dL (75-99)
[2017-09-09 17:19] LABS: INR 0.9 (<1.2); Prothrombin Time 9.3 sec (9.0-12.0)
[2017-09-09 17:21] LABS: Albumin 4.1 g/dL (3.5-5.0); Calcium 10.5 mg/dL (8.4-10.2); Potassium 4.6 mmol/L (3.5-5.1); Total Bilirubin 0.4 mg/dL (0.2-1.3); Total Protein 7.9 g/dL (6.3-8.2)
--- NOTE | 2017-09-09 17:23 | CT ---
EXAMINATION TYPE: CT brain wo con for TPA DATE OF EXAM: 09/09/2017 HISTORY: Patient poor historian. Neuro deficits. CT DLP: 700.2 mGycm. Automated Exposure Control for Dose Reduction was Utilized. TECHNIQUE: CT scan of the head is performed without contrast. COMPARISON: CT brain February 23, 2017. FINDINGS: There is no acute intracranial hemorrhage or midline shift identified. There is diffuse v entricular and sulcal prominence consistent with diffuse age-related cerebral atrophy. There is low- attenuation in the periventricular white matter consistent with chronic small vessel ischemic change. The globes are intact and the visualized sinuses are clear. Patchy opacification bilateral mastoid air cells remains present. Vascular calcification of distal vertebral and internal carotid arteries bilaterally redemonstrated. IMPRESSION: No acute intracranial hemorrhage or midline shift. There is fairly moderate diffuse age -related cerebral atrophy and chronic small vessel ischemic change redemonstrated. No significant ch mindy from prior.
[2017-09-09 17:26] LABS: Partial Thromboplastin Time 21.8 sec (22.0-30.0)
[2017-09-09 17:28] LABS: Creatine Kinase <20 U/L (30-135)
[2017-09-09 17:41] LABS: Creatine Kinase MB 0.5 ng/mL (0.0-2.4); Troponin I <0.012 ng/mL (0.000-0.034)
--- NOTE | 2017-09-09 17:47 | XR ---
EXAMINATION TYPE: XR chest 2V DATE OF EXAM: 09/09/2017 COMPARISON: CT brain February 23, 2017 HISTORY: Altered mental status and weakness. TECHNIQUE: Frontal and lateral views of the chest are obtained. FINDINGS: There is chronic parenchymal change without suspicious focal air space opacity, pleural ef fusion, or pneumothorax seen. The cardiac silhouette size is stable and upper limits of normal with atherosclerotic and ectatic aorta. The osseous structures are demineralized. There is multilevel ve rtebroplasty redemonstrated. There are additional moderate to advanced compression type fracture defo rmities in the lower thoracic spine seen on current study lateral view. Cholecystectomy clips are not ed. High riding humeral heads bilaterally suggest chronic rotator cuff tears. IMPRESSION: Chronic changes without acute pulmonary process. No significant change from prior.
[2017-09-09 18:14] LABS: Glucose,Whole Blood 164 mg/dL (75-99)
[2017-09-09 18:29] LABS: Appearance,Urine Cloudy (Clear); Bilirubin,Urine Negative (Negative); Blood,Urine Negative (Negative); Color,Urine Yellow; Glucose,Urine (UA) Negative (Negative); Hyaline Casts,Urine 55 /lpf (0-2); Ketones,Urine Negative (Negative); Leukocyte Esterase,Urine Large (Negative); Mucus,Urine Rare /hpf; Nitrite,Urine Negative (Negative); Protein,Urine Negative (Negative); Specific Gravity,Urine 1.011 (1.001-1.035); Squamous Epithelial Cell,Urine 11 /hpf (0-4); Urobilinogen,Urine <2.0 mg/dL (<2.0); WBC,Urine >182 /hpf (0-5)
[2017-09-09] MEDS ORDERED: cefTRIAXone IN SWFI 1,000 MG/10 ML SYRINGE IVP STA (18:35)
[2017-09-09 19:02] VITALS: BP 155/65; PULSE 52; RESP 18; TEMP 97
== END 2017-09-09 19:00 | disposition home or self-care (01) ==
LOC: EC 15:50
DX: E11.649 Type 2 diabetes mellitus with hypoglycemia without coma (principal); N39.0 Urinary tract infection, site not specified; F03.90 Unspecified dementia, unspecified severity, without behavioral disturbance, psychotic disturbance, mood disturbance, and anxiety; I10 Essential (primary) hypertension; Z79.82 Long term (current) use of aspirin; Z79.84 Long term (current) use of oral hypoglycemic drugs; Z79.899 Other long term (current) drug therapy
CPT/HCPCS: 99285; 96374; 96375; 36415; 93005; 80053; 82550; 82553; 84484; 85025; 85610; 85730; 81001; 87086; 71046; 70450; J0696